=== PATIENT | female | born 1960 | race Hispanic/Latino ===

== ENCOUNTER 2020-09-03 11:28 | Emergency (ER) | payer OTHER ==
[~2020-09-03] VITALS: Ht 165.1 cm; Wt 77.1 kg
[2020-09-03] MEDS ORDERED: PANTOPRAZOLE 40 MG 10ML VIAL IV STA (12:22)
[2020-09-03] MEDS ORDERED: POTASSIUM CHLORIDE 20 MEQ TAB CR PO STA (15:56)
[2020-09-03] MEDS ORDERED: SODIUM CHLORIDE 0.9% 1000ML 1,000 ML IV SCH (16:00)
[2020-09-03] MEDS ORDERED: METFORMIN HCL500 MG PO (16:39)
[2020-09-03 17:12] VITALS: BP 160/66
== END 2020-09-03 17:00 | disposition other institution (70) ==
LOC: FSED 12:30
DX: S06.6X0A Traumatic subarachnoid hemorrhage without loss of consciousness, initial encounter (principal); R42 Dizziness and giddiness; W01.198A Fall on same level from slipping, tripping and stumbling with subsequent striking against other object, initial encounter; Y93.E1 Activity, personal bathing and showering; Y92.002 Bathroom of unspecified non-institutional (private) residence as the place of occurrence of the external cause; R73.9 Hyperglycemia, unspecified; I10 Essential (primary) hypertension
CPT/HCPCS: 70450; 93005; 99284; J7030